=== PATIENT | male | born 1975 | race Caucasian/White ===

== ENCOUNTER 2017-11-04 11:19 | Inpatient (IN) | payer OTHER ==
[~2017-11-04] VITALS: Ht 175.3 cm; Wt 113.4 kg
[2017-11-04] MEDS ORDERED: IRBESARTAN75 MG (11:24)
[2017-11-08] MEDS ORDERED: AMOX1TAB5 PO (16:09)
== END 2017-11-08 16:53 | disposition home or self-care (01) | DRG 152 ==
LOC: ER 11:19 → MEDI 11-05 07:30
PROC: 4A033R1 Measurement of Arterial Saturation, Peripheral, Percutaneous Approach (ICD-10-PCS; principal; 2017-11-05)
DX: J06.0 Acute laryngopharyngitis (principal); A41.9 Sepsis, unspecified organism; I10 Essential (primary) hypertension; R13.19 Other dysphagia